=== PATIENT | male | born 1960 | race Caucasian/White ===

== ENCOUNTER 2019-06-02 19:17 | Emergency (ER) | payer OTHER ==
[2019-06-02] MEDS ORDERED: Morphine 4 MG/ML VIAL ONE ×2 (19:47→22:25)
[2019-06-02] MEDS ORDERED: Ondansetron PF 4 MG/2 ML Vial ONE (19:47)
[2019-06-02] MEDS ORDERED: Ketorolac Tromethamine 30 MG/ML VIAL ONE (19:47)
[2019-06-02 20:16] LABS: #Basophils 0.1 thou/uL (0.0-0.2); #Eosinphils 0.2 thou/uL (0.0-0.7); #Lymphocytes 3.1 thou/uL (1.20-3.40); #Monocytes 0.6 thou/uL (0.11-0.59); #Neutrophils 4.5 thou/uL (1.40-6.50); %Basophils 0.9 % (0.0-1.0); %Eosinophils 2.2 % (0.0-10.0); %Lymphocytes 36.5 % (21.0-51.0); %Neutrophils 53.4 % (42.0-75.0); Hemoglobin 13.1 g/dL (14.0-18.0); Mean Corpuscular HGB CONC 34.8 g/dL (32.0-36.0); Mean Corpuscular Hemoglobin 32.1 pg (27.0-31.0); Mean Corpuscular Volume 92.3 fL (78.0-98.0); Mean Platelet Volume 7.3 fL (7.4-10.4); Platelet Count 172 thou/uL (130-400); RBC Distribution Width 11.8 % (11.5-14.5); Red Blood Cell (RBC) Count 4.09 mill/uL (4.70-6.10); White Blood Cell (WBC) Count 8.4 thou/uL (4.8-10.8)
[2019-06-02 20:29] LABS: ALT (SGPT) 29 U/L (8-55); AST (SGOT) 28 U/L (5-34); Albumin 4.1 g/dL (3.5-5.0); Alkaline Phosphatase 41 U/L (40-110); Anion Gap 14 mmol/L (10-20); BUN (Urea Nitrogen) 20 mg/dL (8.4-25.7); Bilirubin, Total 0.4 mg/dL (0.2-1.2); Calc. Creatinine Clearance 0 mL/min (70-130); Calcium 8.9 mg/dL (7.8-10.44); Carbon Dioxide 21 mmol/L (22-29); Chloride 108 mmol/L (98-107); Estimated GFR-MDRD 70; Globulin 2.7 g/dL (2.4-3.5); Glucose 97 mg/dL (70-105); Potassium 4.1 mmol/L (3.5-5.1); Protein, Total 6.8 g/dL (6.0-8.3); Sodium 139 mmol/L (136-145)
[2019-06-02 20:43] LABS: Bilirubin Negative (Negative); Blood, Urine Negative (Negative); Clarity Clear (Clear); Glucose, Urine (Dipstick) Normal (Negative); Leukocyte Negative Leu/uL (Negative); Nitrite Negative (Negative); Protein, Urine (Dipstick) Negative (Neg-Trace); Urobilinogen Normal mg/dL (Less than 2)
--- NOTE | 2019-06-02 20:48 | CT ---
Exam: Abdomen CT without contrast Pelvic CT without contrast HISTORY: Abdominal pain. Right flank pain, x6 months COMPARISON: 05/30/2019 FINDINGS: Abdomen CT: Lung bases:5 mm solid nodule in the left lower lobe Heart size: Normal heart size Aorta: Normal caliber. Solid organs: Limited evaluation due to lack of IV contrast. Subcentimeter hypodensities in the liver arteries. Grossly no acute solid organ abnormality. Lymph nodes: Enlarged gastric hepatic lymph node measuring 0.7 x 1.0 cm. Additional gastrohepatic lym ph nodes are noted. Gallbladder: 1.7 cm gallstone. Mesentery: There are scattered mildly enlarged mesenteric lymph nodes. [employer] enlarged lymph node measures 0.8 x 0.7 cm Kidneys: Symmetric nonspecific bilateral perinephric fat stranding. No evidence of left-sided obstruc tive uropathy. No significant right-sided hydronephrosis. However, there is mild dilatation of the mid to distal right ureter secondary to a 4 mm calculus. Alimentary canal: Limited evaluation due to lack of oral contrast. No evidence of small bowel obstruc tion. Normal caliber appendix. Diverticulosis, without evidence of diverticulitis. CT PELVIS: No mass, adenopathy, free air or free fluid. Urinary bladder: Limited evaluation of the urinary bladder due to inadequate distention. Osseous structures: No lytic or blastic lesions IMPRESSION: 1. Mild right-sided hydroureter due to a 4 mm calculus. 2. Cholelithiasis. 3. Diverticulosis, without evidence of diverticulitis. 4. Enlarged mesenteric lymph nodes and gastrohepatic lymph node. 5. 5 mm solid nodule in the left lower lobe. Code lung nodule
--- NOTE | 2019-06-02 22:43 | RAD ---
Exam: 1 view abdomen HISTORY: Pain COMPARISON: 05/31/2019 FINDINGS: Nonspecific bowel gas pattern. No osseous abnormalities IMPRESSION: Nonspecific bowel gas pattern. Calculus noted on recent CT is difficult to appreciate on the current KUB.
--- NOTE | 2019-06-03 14:32 | CON ---
DATE OF CONSULTATION: This is a 59-year-old white male who I saw last evening at [facility] with right flank pain and a CAT scan that was done that showed a right ureteral stone. He is from [place], [place]. He has had a stone, he believes for three or four months. He saw a urologist there after being in the ER there and then felt better, did well, and then the pain returned, and he could not get into his urologist, that is why he travelled all the way over here to try to get the stone treated. He on CAT scan had a 4 mm calculus in the lower third of the right ureter. There was no significant hydronephrosis. He also had some small slightly enlarged mesenteric lymph nodes. His white blood cell count was 8.4, hemoglobin 13.1. Creatinine was 1.08. Urinalysis was negative. His vital signs were stable. He is comfortable currently. His medical history, he has no known drug allergies. He has been taking some Flomax off and on and really has not taken it for a while, but was placed on it when he was initially seen with stone number of weeks ago. Otherwise, no routine medicines. He has a history of hypertension. He has no significant surgical history. He does not drink. He does not smoke. I have reviewed his CAT scan, talked with him and his about it. I would not recommend placing a stent. Currently, he is really not doing bad at all, and the stent is most likely to give him more symptoms. We cannot remove this stone on the weekend. We do not have laser and we do not have a lithotripsy unit available. I am trying to go up that ureter, to where this stone is in an unstented ureter is dangerous. I have offered him a shockwave therapy this coming Wednesday when it is available at [place] and a stent could be placed at that time, if it does look like it breaks up well. This is to be probably the soonest that he could get the stone treated and I am willing to do that if he is, which he is, and because of that, we told him to stay off all aspirin and nonsteroidals starting now. We will get a KUB, which was done and I reviewed it this morning. We cannot really see the stone well. It is over the sacrum, may be something that will be visible at the time of the shockwave. If not, we can do a retrograde and see where the stone is and treat that filling defect, so ESWL is still an option for him. If ESWL does not work, we can place a stent and come back at another time and do ureteroscopy, if he does not pass the stone with stent in. I think he needs to go home with strainer as this is not a very big stone. It is certainly possible that he could pass the stone in the next few days. So in that event, my office will get hold him on Wednesday and we will look at getting him set up for the lithotripsy on Wednesday unless he passes the stone. Job ID: [id number]
== END 2019-06-02 22:37 | disposition home or self-care (01) ==
LOC: ERS 19:17
DX: N20.1 Calculus of ureter (principal); R91.1 Solitary pulmonary nodule; I10 Essential (primary) hypertension; Z79.899 Other long term (current) drug therapy
CPT/HCPCS: 74018; 74176; 80053; 81003; 85025; 87086; 96361; 96374; 96375; 96376; J1885; J2270; J2405

== ENCOUNTER 2019-06-07 07:51 | Day surgery (SDC) | payer OTHER ==
[2019-06-06 12:30] VITALS: BMI 25.6
[2019-06-07 10:02] LABS: #Basophils 0.1 thou/uL (0.0-0.2); #Eosinphils 0.2 thou/uL (0.0-0.7); #Lymphocytes 2.5 thou/uL (1.20-3.40); #Monocytes 0.5 thou/uL (0.11-0.59); #Neutrophils 4.1 thou/uL (1.40-6.50); %Basophils 0.7 % (0.0-1.0); %Eosinophils 3.3 % (0.0-10.0); %Lymphocytes 33.9 % (21.0-51.0); %Monocytes 6.2 % (0.0-10.0); %Neutrophils 55.9 % (42.0-75.0); Hemoglobin 13.5 g/dL (14.0-18.0); Mean Corpuscular Hemoglobin 32.5 pg (27.0-31.0); Mean Corpuscular Volume 92.9 fL (78.0-98.0); Mean Platelet Volume 6.8 fL (7.4-10.4); Platelet Count 209 thou/uL (130-400); RBC Distribution Width 11.7 % (11.5-14.5); Red Blood Cell (RBC) Count 4.15 mill/uL (4.70-6.10); White Blood Cell (WBC) Count 7.4 thou/uL (4.8-10.8)
[2019-06-07 10:05] LABS: Platelet Count 205 thou/uL (130-400)
[2019-06-07 10:06] LABS: Prothrombin Time 13.2 SEC (12.0-14.7)
[2019-06-07 10:10] LABS: EPI 112 SEC (67-199)
[2019-06-07 10:15] LABS: Anion Gap 13 mmol/L (10-20); BUN (Urea Nitrogen) 17 mg/dL (8.4-25.7); Calc. Creatinine Clearance 115 mL/min (70-130); Calcium 9.4 mg/dL (7.8-10.44); Carbon Dioxide 24 mmol/L (22-29); Chloride 107 mmol/L (98-107); Estimated GFR-MDRD Greater than 90; Glucose 89 mg/dL (70-105); Potassium 4.5 mmol/L (3.5-5.1); Sodium 139 mmol/L (136-145)
[2019-06-07] MEDS ORDERED: Fentanyl 100 MCG/2 ML VIAL ONE ×5 (10:42→20:54)
[2019-06-07] MEDS ORDERED: Iothalamate Meglumine 60% 50 ML VIAL FS ONE ×2 (11:31→19:12)
--- NOTE | 2019-06-07 11:51 | RAD ---
SUPINE ABDOMEN: Date: 06/07/19 INDICATION: Preop. COMPARISON: 06/02/19. FINDINGS: No evidence of urinary tract calcification. Bowel gas pattern unremarkable. There is a rounded calcification overlying the right upper quadrant consistent with a gallstone. IMPRESSION: 1. Evidence of a gallstone overlying the right upper quadrant. 2. No urinary tract calcification. 3. Unremarkable bowel gas pattern. POS: OFF
[2019-06-07] MEDS ORDERED: Morphine 4 MG/ML VIAL ONE (13:01)
[2019-06-07] MEDS ORDERED: Morphine 2 MG/ML SYRINGE ONE ×3 (13:31→14:50)
[2019-06-07] MEDS ORDERED: HYDROcodone/Acetaminophen 5/325 mg Tablet ONE (13:53)
[2019-06-07] MEDS ORDERED: HYDROmorphone 0.5 MG/0.5 ML SYRINGE ONE ×3 (15:24→18:24)
--- NOTE | 2019-06-07 17:15 | OP ---
DATE OF PROCEDURE: 06/07/2019 PREOPERATIVE DIAGNOSIS: Right ureteral stone. POSTOPERATIVE DIAGNOSIS: Right ureteral stone. PROCEDURE PERFORMED: Right extracorporeal shock wave lithotripsy. ANESTHETIC: General. ESTIMATED BLOOD LOSS: Not recorded. FINDINGS: There was a 4 to 5 mm stone sitting over the right sacrum, was treated with 2000 shocks at level 5. Treated anterior approach, fragmented well. No stent was placed. DESCRIPTION OF PROCEDURE: After obtaining written and verbal consent from the patient and after documenting normal preop blood work, being sure we could see the stone on his KUB, he was taken to the operating suite. He was placed in a supine position on the treatment table. PlexiPulses were placed on his lower extremities and turned on. He was given a general anesthetic and oral obturator intubation. He was coupled to the lithotripsy unit. The stone was placed in treatment focal point. Shockwave therapy was commenced at a low kV and a rate of 60. The kv was brought up to the level 5. Fluoroscopy was used intermittently to document stone fragmentation and to reposition as necessary. After about 2000 shocks, we could see no further stone or stone fragments remaining and the procedure was terminated. At this point, he was awakened and extubated and taken by praful to the recovery room. Job ID: [id number]
[2019-06-07] MEDS ORDERED: Promethazine HCl 25 MG/ML VIAL ONE (17:51)
--- NOTE | 2019-06-07 22:45 | OP ---
DATE OF PROCEDURE: 06/07/2019 PREOPERATIVE DIAGNOSES: Right ureteral colic, right ureteral stone, status post right extracorporeal shock wave lithotripsy earlier today. POSTOPERATIVE DIAGNOSES: Right ureteral colic, right ureteral stone, status post right extracorporeal shock wave lithotripsy earlier today. PROCEDURES PERFORMED: Cystoscopy, right retrograde, right stent. ANESTHETIC: General. ESTIMATED BLOOD LOSS: Minimal. FINDINGS: After the retrograde study, he passed a number of small stone fragments into the bladder. We let him urinate those out and save him. He had efflux out the right ureter after this, although it was sluggish, and the ureter remained slightly dilated on retrograde. Because of the amount of pain he was having this afternoon and because he lives in [place], [place] which is not close to [facility], I elected to put a stent in and will leave it in for a few days. DESCRIPTION OF PROCEDURE: After obtaining written and verbal consent from the patient, he was taken to the operating suite. He was placed in supine position on the treatment table. He had received 2 g of Ancef. PlexiPulses were placed on his lower extremities and turned on. He was given a general anesthetic and oral obturator intubation. He was placed in dorsal lithotomy position and sterilely prepped and draped. Cystoscopy was performed with a 22-Montserratian sheath, this was well lubricated and passed under direct vision through the male urethra into the urinary bladder with aid of a 30-degree lens and video camera and monitor. The bladder was filled and emptied. There was some debris on the floor, but no stones. I did not see any efflux on the right side. We brought in a 5-Montserratian Pollack catheter, flushed with contrast, placed into the right ureteral orifice injecting contrast in a retrograde manner. Once this was done, he started effluxing some stones and some blood. The contrast however still hung up and the ureter was still mildly dilated and with the amount of pain that he is having this afternoon after shockwave, we elected to put a stent in. A guidewire was fed up this side. Stent was placed over the guidewire, pushed up into place with aid of a pusher so its proximal end coiled in the renal pelvis and its distal end coiled in the bladder when the wire was removed. The string was left attached to the stent exiting urethral meatus. The bladder was drained. The instruments were removed. He was awakened and taken by stretcher to the recovery room. Job ID: [id number]
== END 2019-06-07 23:07 | disposition home or self-care (01) ==
LOC: SDC 07:51
PROVIDERS: ATTEND Urology
PROC: 0TF6XZZ Fragmentation in Right Ureter, External Approach (ICD-10-PCS; principal; 2019-06-07)
PROC: 0T768DZ Dilation of Right Ureter with Intraluminal Device, Via Natural or Artificial Opening Endoscopic (ICD-10-PCS; principal; 2019-06-07)
DX: N20.1 Calculus of ureter (principal); I10 Essential (primary) hypertension; Z79.899 Other long term (current) drug therapy
CPT/HCPCS: 36415; 74018; 76000; 80048; 85025; 85576; 85610; 85730; C1758; J0690; J1170; J2270; J2550; J3010